=== PATIENT | male | born 1995 | race Caucasian/White ===

== ENCOUNTER 2020-03-29 18:33 | Emergency (ER) | payer BC ==
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
== END 2020-03-29 19:45 | disposition home or self-care (01) ==
LOC: LL.ED 18:33
DX: S01.81XA Laceration without foreign body of other part of head, initial encounter (principal); Z88.1 Allergy status to other antibiotic agents; W22.8XXA Striking against or struck by other objects, initial encounter
CPT/HCPCS: 12002; 12011; 99282; 99282-25